=== PATIENT | male | born 1995 | race Caucasian/White ===

== ENCOUNTER 2016-02-13 10:41 | Outpatient (CLI) | payer MEDICAID | END 2016-02-13 10:42 | disposition home or self-care (01) | DX: R11.0 Nausea (principal) ==

== ENCOUNTER 2018-12-26 15:39 | Emergency (ER) | payer SELFPAY ==
[2018-12-26] MEDS ORDERED: IBUPROFEN 800 MG TABLET PO STA (15:56)
--- NOTE | 2018-12-26 15:58 | ED Physician Documentation ---
History of Present Illness - Stated complaint Stated Complaint: CP - Chief complaint Chief Complaint: General - History obtained from History obtained from: Patient (He has had intermittent chest pains before. It recurred yesterday while lifting up his daughter. It is a sharp pain just to the left of the sternum radiating over the side. It is worse with deep breathing and certain motions. He is not short of breath though. Denies calf pain, recent travel, or pedal edema. He has a grandfather who started having heart problems in his 50s, otherwise a negative family history for coronary disease.) Review of Systems Constitutional: denies: Fever, Chills, Myalgias, Fatigue Throat: denies: Sore throat Cardiac: denies: Palpitations, Pedal edema, Calf pain Respiratory: denies: Dyspnea, Cough PD PAST MEDICAL HISTORY - Past Medical History Cardiovascular: None Respiratory: None Endocrine/Autoimmune: None - Past Surgical History Past Surgical History: Yes - Present Medications Home Medications: Ambulatory Orders Medication Instructions Recorded Confirmed Ibuprofen [Motrin] 800 mg PO Q8H PRN #30 tablet 12/26/18 - Allergies Allergies/Adverse Reactions: Allergies Allergy/AdvReac Type Severity Reaction Status Date / Time No Known Drug Allergies Allergy Verified 12/26/18 15:44 - Social History Does the pt smoke?: Yes Smoking Status: Current every day smoker Does the pt drink ETOH?: Yes Does the pt have substance abuse?: No - Immunizations Immunizations are current?: Yes - POLST Patient has POLST: No PD ED PE NORMAL - Vitals Vital signs reviewed: Yes - General General: Alert and oriented X 3, No acute distress - HEENT HEENT: PERRL, EOMI - Neck Neck: Supple, no meningeal sign, No bony TTP - Cardiac Cardiac: RRR, No murmur, Other (Tender to the left costochondral joints which re-creates his pain.) - Respiratory Respiratory: No respiratory distress, Clear bilaterally - Abdomen Abdomen: Non tender - Extremities Extremities: No tenderness to palpate, No edema, No calf tenderness / cord - Neuro Neuro: Alert and oriented X 3, Normal speech Results - Vitals Vitals: Vital Signs - 24 hr 12/26/18 15:42 Temperature 36.7 C Heart Rate 83 Respiratory 18 Rate Blood Pressure 134/70 H O2 Saturation 99 Oxygen O2 Source Room air - EKG (time done) 1553 Rate: Rate (enter#) (86) Rhythm: NSR [place]: Normal Intervals: Normal [place] QRS: Normal Ischemia: Normal ST segments - Labs Labs: Laboratory Tests 12/26/18 16:20 Troponin I High Sens < 2.3 L PD MEDICAL DECISION MAKING - ED course ED course: This is a young man with clinical costochondritis. No evidence of PE/pneumothorax/ACS Departure - Departure Disposition: 01 Home, Self Care Clinical Impression: Costochondritis, acute Condition: Good Record reviewed to determine appropriate education?: Yes Instructions: ED Chest Pain Costochondritis Prescriptions: Ibuprofen [Motrin] 800 mg PO Q8H PRN #30 tablet PRN Reason: PAIN &/OR FEVER Comments: Call your doctor to arrange a follow-up appointment, make the next available appointment. In the interim, return anytime if worse or if new symptoms develop.
[2018-12-26 17:07] VITALS: BP 132/75
--- NOTE | 2018-12-27 05:52 | XRAY Report ---
Reason: chest pain Procedure Date: 12/26/2018 Accession Number: [id number] / [id number] Procedure: XR - Chest 2 View X-Ray CPT Code: 75025 Final Report FULL RESULT: EXAM: CHEST RADIOGRAPHY EXAM DATE: 12/26/2018 04:15 PM. CLINICAL HISTORY: Chest pain. COMPARISON: None. TECHNIQUE: 2 views. FINDINGS: Lungs/Pleura: No focal opacities evident. No pleural effusion. No pneumothorax. Normal volumes. Mediastinum: Heart and mediastinal contours are unremarkable. Other: None. IMPRESSION: Normal 2-view chest radiography. [facility]
== END 2018-12-26 17:07 | disposition home or self-care (01) ==
LOC: ED 15:39
DX: M94.0 Chondrocostal junction syndrome [Tietze] (principal); F17.200 Nicotine dependence, unspecified, uncomplicated
CPT/HCPCS: 36415; 71046; 84484; 93005; 99283; A9270

== ENCOUNTER 2023-04-30 09:00 | Outpatient (CLI) | payer OTHER | END 2023-04-30 09:15 | disposition home or self-care (01) | LOC: LAB.N 09:00 | PROVIDERS: ATTEND Family Medicine | DX: J02.9 Acute pharyngitis, unspecified (principal) | CPT/HCPCS: 87070 ==